=== PATIENT | male | born 1985 ===

== ENCOUNTER 2016-09-29 16:01 | Emergency (ER) | payer OTHER ==
[2016-09-29 16:09] VITALS: BMI 32.8
[2016-09-29] MEDS ORDERED: Sodium Chloride 0.9% 1,000 ML IV STA (16:24)
[2016-09-29 16:27] VITALS: TEMP 97.8
[2016-09-29 17:15] LABS: HEMOGLOBIN 15.9 gm/dL (14.0-18.0); MEAN CELL VOLUME 91.7 fL (80.0-105.0); MEAN CORPUSCULAR HEMOGLOBIN 31.4 pg (25.0-35.0); MEAN CORPUSCULAR HGB CONC 34.2 g/dl (31.0-37.0); MEAN PLATELET VOLUME 9.7 fl (7.0-11.0); PLATELET COUNT 285 10^3/uL (120.0-450.0); RBC 5.07 10^6/uL (3.5-6.1); RED CELL DISTRIBUTION WIDTH 13.8 % (11.5-14.5)
[2016-09-29 17:19] LABS: ALB/GLOB RATIO 1.4 (1.1-1.8); ALBUMIN 4.4 g/dL (3.0-4.8); ALT/SGPT 63 U/L (7-56); AST/SGOT 40 U/L (15-59); BLOOD UREA NITROGEN 15 mg/dL (7-21); CALCIUM 8.9 mg/dL (8.4-10.5); GFR AFRICAN-AMERICAN > 60; GFR NON-AFRICAN AMERICAN > 60
[2016-09-29 17:23] LABS: WHITE BLOOD COUNT 28.5 10^3/ul (4.5-11.0)
[2016-09-29 17:37] LABS: BARBITURATES, UR NEGATIVE (NEGATIVE); BENZODIAZEPINES, UR NEGATIVE (NEGATIVE); OPIATES, UR POSITIVE (NEGATIVE); PHENCYCLIDINE, UR POSITIVE (NEGATIVE)
--- NOTE | 2016-09-29 17:45 | ED PDOC ---
Arrival/HPI - General Chief Complaint: Substance Abuse Time Seen by Provider: 09/29/16 16:05 Historian: Patient - History of Present Illness Narrative History of Present Illness (Text): 09/29/16 17:47 A 30 year old male was brought in by EMS to the emergency department. Patient was found with decrease level of consciousness. Patient was given Narcan, positive response. Patient is awake and alert in the emergency department. Patient reports he took two bags of heroine nasally. Denies any other drug use. Denies any physical complaints. Symptom Onset: Sudden Symptom Course: Improving Activities at Onset: Rest Associated Symptoms (Text): none Past Medical History - Provider Review Nursing Documentation Reviewed: Yes - Infectious Disease Hx of Infectious Diseases: None - Pulmonary Other/Comment: bladder ca 2013 had radiation treatment - Genitourinary/Gynecological Hx Bladder Cancer: Yes (2013) - Psychiatric Hx Substance Use: Yes - Surgical History Other/Comment: bladder tumor - Anesthesia Hx Anesthesia Reactions: No Hx Malignant Hyperthermia: No Family/Social History - Physician Review Nursing Documentation Reviewed: Yes Family/Social History: No Known Family HX Smoking Status: Current Some Days Smoker Hx Alcohol Use: Yes Frequency of alcohol use: Socially Hx Substance Use: Yes Substance used: heroine Allergies/Home Meds Allergies/Adverse Reactions: Allergies seafood Allergy (Uncoded 09/29/16 16:10) SWELLING Review of Systems - Physician Review All systems were reviewed & negative as marked: Yes - Review of Systems Constitutional: Other (decrease level of consciousness) Respiratory: absent: SOB Neurological: absent: Dizziness Physical Exam Vital Signs Reviewed: Yes Vital Signs Temp Pulse Resp BP Pulse Ox 09/29/16 18:16 95 H 18 135/76 96 09/29/16 16:26 97.8 F 110 H 16 137/79 93 L Temperature: Afebrile Blood Pressure: Normal Pulse: Tachycardic Respiratory Rate: Normal Appearance: Positive for: Well-Appearing, Non-Toxic, Comfortable Pain Distress: None Mental Status: Positive for: Alert and Oriented X 3 - Systems Exam Head: Present: Atraumatic, Normocephalic Pupils: Present: PERRL Extroacular Muscles: Present: EOMI Conjunctiva: Present: Normal Mouth: Present: Moist Mucous Membranes Neck: Present: Normal Range of Motion Respiratory/Chest: Present: Clear to Auscultation, Good Air Exchange. No: Respiratory Distress, Accessory Muscle Use Cardiovascular: Present: Regular Rate and Rhythm, Normal S1, S2. No: Murmurs Abdomen: Present: Normal Bowel Sounds. No: Tenderness, Distention, Peritoneal Signs Back: Present: Normal Inspection Upper Extremity: Present: Normal Inspection. No: Cyanosis, Edema Lower Extremity: Present: Normal Inspection. No: Edema Neurological: Present: GCS=15, CN II-XII Intact, Speech Normal Skin: Present: Warm, Dry, Normal Color. No: Rashes Psychiatric: Present: Alert, Oriented x 3, Normal Insight, Normal Concentration Medical Decision Making ED Course and Treatment: 09/29/16 17:42 Impression: A 30 year old male with decrease level of consciousness. Plan: -- labs -- IV fluids -- Reassess and disposition Progress Notes: Patient awake and alert. On re-evaluation, patient feels better and is in no acute distress. Patient in agreement with plan to be discharged home. Patient is stable for discharge. Patient was instructed to follow up with physician or return if symptoms worsen or new concerning symptoms arise. - Lab Interpretations Lab Results: 09/29/16 16:45 09/29/16 16:45 Lab Results 09/29/16 17:05: Urine Opiates Screen Positive H, Urine Methadone Screen Negative , Ur Barbiturates Screen Negative, Ur Phencyclidine Scrn Positive H, Ur Amphetamines Screen Negative, U Benzodiazepines Scrn Negative, U Oth Cocaine Metabols Negative, U Cannabinoids Screen Negative 09/29/16 16:45: Alcohol, Quantitative < 10 09/29/16 16:45: Sodium 144, Potassium 3.7, Chloride 102, Carbon Dioxide 24, Anion Gap 22 H, BUN 15, Creatinine 1.0, Est GFR ( Amer) > 60, Est GFR ( Non-Af Amer) > 60, Random Glucose 203 H, Calcium 8.9, Total Bilirubin 0.8, AST 40, ALT 63 H, Alkaline Phosphatase 78, Total Protein 7.5, Albumin 4.4, Globulin 3.1, Albumin/Globulin Ratio 1.4 09/29/16 16:45: WBC 28.5 H*, RBC 5.07, Hgb 15.9, Hct 46.5, MCV 91.7, MCH 31.4, MCHC 34.2, RDW 13.8, Plt Count 285, MPV 9.7, Neutrophils % (Manual) 69, Band Neutrophils % 8 H, Lymphocytes % (Manual) 16 L, Monocytes % (Manual) 7 H, Platelet Evaluation Normal I have reviewed the lab results: Yes - Medication Orders Current Medication Orders: Discontinued Medications Sodium Chloride (Sodium Chloride 0.9%) 1,000 mls @ 999 mls/hr IV .[id number] STA Stop: 09/29/16 17:24 Last Admin: 09/29/16 16:25 Dose: 999 mls/hr - Scribe Statement The provider has reviewed the documentation as recorded by the Don Quinonez Provider Scribe Attestation: All medical record entries made by the Scribe were at my direction and personally dictated by me. I have reviewed the chart and agree that the record accurately reflects my personal performance of the history, physical exam, medical decision making, and the department course for this patient. I have also personally directed, reviewed, and agree with the discharge instructions and disposition. Disposition/Present on Arrival - Present on Arrival Any Indicators Present on Arrival: No History of DVT/PE: No History of Uncontrolled Diabetes: No Urinary Catheter: No History of Decub. Ulcer: No History Surgical Site Infection Following: None - Disposition Have Diagnosis and Disposition been Completed?: Yes Diagnosis: Drug abuse Disposition: HOME/ ROUTINE Disposition Time: 18:16 Condition: IMPROVED Discharge Instructions (ExitCare): Polysubstance Abuse (ED) Additional Instructions: Thank you for letting us take care of you today. Your provider was Dr. Soriano. You were treated for drug abuse. The emergency medical care you received today was directed at your acute symptoms. If you were prescribed any medication, please fill it and take as directed. It may take several days for your symptoms to resolve. Return to the Emergency Department if your symptoms worsen, do not improve, or if you have any other problems. Please contact your doctor or call one of the physicians/clinics you have been referred to that are listed on the Patient Visit Information form that is included in your discharge packet. Bring any paperwork you were given at discharge with you along with any medications you are taking to your follow up visit. Our treatment cannot replace ongoing medical care by a primary care provider (PCP) outside of the emergency department. Thank you for allowing the [facility] team to be part of your care today. Follow up with the clinic this week for outpatient care. Referrals: PCP,NO [Primary Care Provider] - Follow up with primary
[2016-09-29 17:48] LABS: BAND 8 % (0-2); LYMPHOCYTE 16 % (22.0-35.0); MONOCYTE 7 % (1.0-6.0); NEUTROPHIL 69 % (50.0-70.0); PLATELET ESTIMATE NORMAL (NORMAL)
[2016-09-29 18:17] VITALS: BP 135/76; PULSE 95; RESP 18; O2SAT 96
== END 2016-09-29 18:18 | disposition home or self-care (01) ==
LOC: ED 16:01
DX: F19.10 Other psychoactive substance abuse, uncomplicated (principal)
CPT/HCPCS: 80053; 80320; 80324; 80345; 80346; 80349; 80353; 80358; 80361; 83992; 85025; 96360; 99284; J7040

== ENCOUNTER 2016-12-10 23:10 | Emergency (ER) | payer OTHER ==
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
[2016-12-10 23:35] VITALS: BMI 30.5
[2016-12-10 23:36] VITALS: BP 138/78; PULSE 92; RESP 17; TEMP 98.3; O2SAT 95
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
--- NOTE | 2016-12-11 08:57 | RAD ---
PROCEDURE: Left Knee Radiographs. HISTORY: Pain. COMPARISON: None. FINDINGS: BONES: Normal. No fracture. JOINTS: Normal. No osteoarthritis. JOINT EFFUSION: None. OTHER FINDINGS: None. IMPRESSION: Normal radiographs of the left knee.
--- NOTE | 2016-12-11 08:58 | RAD ---
PROCEDURE: Left Ankle Radiographs. HISTORY: lt. lateral ankle pain COMPARISON: None FINDINGS: BONES: Normal. No fracture. JOINTS: Normal. No osteoarthritis. Ankle mortise maintained. Talar dome intact SOFT TISSUES: Normal. OTHER FINDINGS: None. IMPRESSION: Normal left ankle radiographs.
== END 2016-12-11 02:10 | disposition home or self-care (01) ==
LOC: ED 23:10
DX: M25.572 Pain in left ankle and joints of left foot (principal); S00.83XA Contusion of other part of head, initial encounter; V47.5XXA Car driver injured in collision with fixed or stationary object in traffic accident, initial encounter; Y92.410 Unspecified street and highway as the place of occurrence of the external cause

== ENCOUNTER 2017-04-28 19:22 | Emergency (ER) | payer OTHER ==
[2017-04-28 19:31] VITALS: BMI 29.8
[2017-04-28 19:44] VITALS: BP 132/77; PULSE 72; RESP 18; TEMP 97.5; O2SAT 98
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
== END 2017-04-28 20:00 | disposition left against medical advice (07) ==
LOC: ED 19:22
DX: T50.994A Poisoning by other drugs, medicaments and biological substances, undetermined, initial encounter (principal); Y92.89 Other specified places as the place of occurrence of the external cause